=== PATIENT | male | born 1985 | race Caucasian/White ===

== ENCOUNTER 2019-02-04 02:24 | Emergency (ER) | payer MEDICAID ==
[~2019-02-04] VITALS: Ht 167.6 cm; Wt 104.3 kg
--- NOTE | 2019-02-04 02:43 | NUR ---
PT AMBULATED TO ER BED 04
[2019-02-04 02:44] VITALS: BP 140/88
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
[2019-02-04 03:26] VITALS: BP 133/90
== END 2019-02-04 03:26 | disposition home or self-care (01) ==
LOC: MED 02:24
DX: F41.9 Anxiety disorder, unspecified (principal); G47.00 Insomnia, unspecified; J45.909 Unspecified asthma, uncomplicated
CPT/HCPCS: 99284

== ENCOUNTER 2019-11-28 02:30 | Emergency (ER) | payer MEDICAID ==
[~2019-11-28] VITALS: Ht 170.2 cm; Wt 113.4 kg
[2019-11-28 02:42] VITALS: BP 149/78
--- NOTE | 2019-11-28 02:46 | NUR ---
PT AMBULATED TO BED 4 WITH STEADY GAIT.
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
[2019-11-28 03:22] VITALS: BP 145/78
--- NOTE | 2019-11-28 03:22 | NUR ---
Patient discharged with v/s stable. Written and verbal after care instructions ABOUT DENTAL ABSCESS given and explained. Patient alert, oriented and verbalized understanding of instructions. Ambulatory with steady gait. All questions addressed prior to discharge. ID band removed. Patient advised to follow up with PMD. Rx of NAPROSYN AND AMOXICILLIN given. Patient educated on indication of medication including possible reaction and side effects. Opportunity to ask questions provided and answered.
== END 2019-11-28 03:22 | disposition home or self-care (01) ==
LOC: MED 02:30
DX: K08.89 Other specified disorders of teeth and supporting structures (principal)
CPT/HCPCS: 99283